=== PATIENT | female | born 1965 | race Caucasian/White ===

== ENCOUNTER 2017-10-29 14:44 | Day surgery (SDC) | payer OTHER ==
[~2017-10-29] VITALS: Ht 162.6 cm; Wt 113.5 kg
--- OUTSIDE RECORDS SUMMARY | ~2017-10-29 | XMS | Clinical Summary ---
Demographics + + + | Address | [address] [place] [address] | | | [place] [address] | + + + | Home Phone | | + + + | Preferred Language | Unknown | + + + | Marital Status | | + + + | Worship Affiliation | BAP | + + + | Race | White | + + + | Ethnic Group | Not or | + + + Author + + + | Author | [facility] | + + + | Organization | [facility] | + + + | Address | Unknown | + + + | Phone | Unavailable | + + + Support +------+ + + + + | Name | Relationship | Address | Phone | +------+ + + + + ECON | [address] | | [place] [address] | +------+ + + + + Care Team Providers + +------+ + | Care Medical Transcription Radiology Name | Role | Phone | + +------+ + | Marcella DrummondP | PP | | + +------+ + Source Comments CELE is fully live on both EpicCare Ambulatory and EpicCare InPatient.[facility] Allergies + + + + + + | Active Allergy | Reactions | Severity | Noted | Comments | | | | | Date | | + + + + + + | Erythromycin | Hives, Rash | | 12/29/19 | | | | | | 08 | | + + + + + + | Gluten | Diarrhea | | 08/27/20 | Celiac disease : | | | | | 12 | "Gas, bloating, | | | | | | abdominal pain." | + + + + + + | Adhesive Tape | Rash | | 07/18/20 | Blister Blisters | | | | | 11 | | + + + + + + | Tetracycline | Hives, Rash | | 12/29/19 | | | | | | 08 | | + + + + + + Current Medications + + + +---------+------+------+-------+ | Prescription | Sig. | Disp. | Refills | Star | End | Statu | | | | | | t | Date | s | | | | | | Date | | | + + + +---------+------+------+-------+ | ibuprofen 600 mg | Take 1 Tab by mouth | 60 Tab | 1 | 09/1 | | Activ | | Oral tablet | every six hours as | | | 4/20 | | e | | | needed. | | | 12 | | | + + + +---------+------+------+-------+ | acetaminophen | Take 325 mg by mouth | | | | | Activ | | (TYLENOL) 325 mg | every four hours as | | | | | e | | Oral tablet | needed. | | | | | | + + + +---------+------+------+-------+ | pseudoephedrine | Take 1 to 2 tablets | 30 | 0 | 05/2 | | Activ | | (SUDOGEST) 30 mg | by mouth every 4 to | tablet | | 6/20 | | e | | oral tablet | 6 (four to six) | | | 15 | | | | | hours as needed for | | | | | | | | congestion. | | | | | | + + + +---------+------+------+-------+ | nitroglycerin 0.4 | Place 1 tablet under | 25 | 5 | 09/ | | Activ | | mg sublingual | tongue every five | tablet | | /20 | | e | | tablet, | minutes as needed | | | 15 | | | | sublingualIndication | for chest pain. | | | | | | | s: Precordial pain | Place under tongue | | | | | | | | and allow to | | | | | | | | dissolve. | | | | | | | | Administer every 5 | | | | | | | | minutes, max of 3 | | | | | | | | doses in 15 minutes. | | | | | | + + + +---------+------+------+-------+ | sertraline 50 mg | Take 50 mg by mouth | | 1 | 02/0 | | Activ | | oral tablet | once daily. Pt | | | 12/16 | | e | | | taking 0.5 tablet | | | 16 | | | | | daily | | | | | | + + + +---------+------+------+-------+ | acyclovir 800 mg | Take 1 tablet by | 10 | 4 | 07/2 | | Activ | | oral tablet | mouth two times | tablet | | 10/18 | | e | | | daily. X 5 days | | | 16 | | | + + + +---------+------+------+-------+ | lidocaine 2 % | Apply to affected | 30 mL | 5 | 08/2 | | Activ | | mucous membrane gel | area three times | | | 2/20 | | e | | | daily as needed. | | | 16 | | | | | Apply gel liberally | | | | | | | | to the affected area | | | | | | | | prior to | | | | | | | | intercourse. | | | | | | + + + +---------+------+------+-------+ | | Take 1 tablet by | 15 | 0 | 03/2 | | Activ | | HYDROcodone-acetamin | mouth every four to | tablet | | 2/20 | | e | | ophen (NORCO) 5-325 | six hours as needed | | | 17 | | | | mg oral tablet | for pain. | | | | | | + + + +---------+------+------+-------+ | ergocalciferol | Take 1 capsule by | 6 | 3 | 03/2 | | Activ | | 50,000 unit oral | mouth every fourteen | capsule | | 8/20 | | e | | capsuleIndications: | days. Indications: | | | 17 | | | | Vitamin D Deficiency | Vitamin D Deficiency | | | | | | + + + +---------+------+------+-------+ | leucovorin 5 mg | Take 1 tablet by | 120 | 2 | 04/ | | Activ | | oral tablet | mouth once daily. | tablet | | 06/18 | | e | | | | | | 17 | | | + + + +---------+------+------+-------+ | methotrexate 2.5 | Take 8 tablets by | 96 | 1 | 02/28 | | Activ | | mg oral tablet | mouth every seven | tablet | | 04/17 | | e | | | days. | | | 17 | | | + + + +---------+------+------+-------+ Active Problems + + + | Problem | Noted Date | + + + | Obstructive sleep apnea | 08/07/2016 | + + + | Appendicitis | 05/27/2015 | + + + | Acute appendicitis, unspecified acute appendicitis type | 05/27/2015 | + + + | Plantar fasciitis | 07/13/2014 | + + + | Psoriatic arthritis (HCC) | 02/28/2014 | + + + | BMI 40.0-44.9, adult (HCC) | 06/05/2012 | + + + | Rectocele | 06/05/2012 | + + + | Fecal incontinence | 06/05/2012 | + + + | ROSALINA (stress urinary incontinence, female) | 06/05/2012 | + + + | Psoriasis | 06/05/2012 | + + + | Chronic orthostatic hypotension | 06/05/2012 | + + + | Celiac disease | 06/05/2012 | + + + | Chronic constipation | 06/05/2012 | + + + | Personal history of other malignant neoplasm of skin | 03/04/2012 | + + + | Other psoriasis | 02/21/2011 | + + + | Skin cancer | | + + + Immunizations + + + + | Name | Dates Previously Given | Next Due | + + + + | Influenza Injectable | 07/11/2015 | | | Quadrivalent (IIV4 | | | | P-Free) | | | + + + + Family History + + +------+ + | Medical History | Relation | Name | Comments | + + +------+ + | Arthritis | Father | | | + + +------+ + | Cancer | Father | | Skin | + + +------+ + | Cataract | Father | | | + + +------+ + | Diabetes | Father | | | + + +------+ + | Heart Disease | Father | | | + + +------+ + | Arthritis | Maternal | | | | | Grandfath | | | | | er | | | + + +------+ + | Cancer | Maternal | | Skin | | | Grandfath | | | | | er | | | + + +------+ + | Diabetes | Maternal | | | | | Grandfath | | | | | er | | | + + +------+ + | Heart Disease | Maternal | | | | | Grandfath | | | | | er | | | + + +------+ + | Hypertension | Maternal | | | | | Grandfath | | | | | er | | | + + +------+ + | Blood Disease | Maternal | | Lupus external | | | Grandmoth | | | | | er | | | + + +------+ + | Hypertension | Maternal | | | | | Grandmoth | | | | | er | | | + + +------+ + | Diabetes | Mother | | | + + +------+ + | Glaucoma | Mother | | | + + +------+ + | Heart Disease | Mother | | | + + +------+ + | Blood Disease | Paternal | | Internal Lupus | | | Aunt | | | + + +------+ + | Arthritis | Paternal | | | | | Grandfath | | | | | er | | | + + +------+ + | Diabetes | Paternal | | | | | Grandfath | | | | | er | | | + + +------+ + | Heart Disease | Paternal | | | | | Grandfath | | | | | er | | | + + +------+ + | Cancer | Paternal | | pancreas | | | Grandmoth | | | | | er | | | + + +------+ + | Hypertension | Paternal | | | | | Grandmoth | | | | | er | | | + + +------+ + + +------+--------+ + | Relation | Name | Status | Comments | + +------+--------+ + | Brother | | Alive | | + +------+--------+ + | Brother | | Alive | | + +------+--------+ + | Daughter | | Alive | | + +------+--------+ + | Father | | Alive | | + +------+--------+ + | Maternal Grandfather | | | | + +------+--------+ + | Maternal Grandmother | | | | + +------+--------+ + | Mother | | Alive | | + +------+--------+ + | Paternal Aunt | | | | + +------+--------+ + | Paternal Grandfather | | | | + +------+--------+ + | Paternal Grandmother | | | | + +------+--------+ + | Son | | Alive | | + +------+--------+ + | Son | | Alive | | + +------+--------+ + Social History + + + +--------+ + | Tobacco Use | Types | Packs/Day | Years | Date | | | | | Used | | + + + +--------+ + | Former Smoker | Cigarettes | 1 | 6 | Quit: 09/29/1986 | + + + +--------+ + + +---+---+---+ | Smokeless Tobacco: | | | | | Never Used | | | | + +---+---+---+ + + | Tobacco Cessation: Counseling Given: Yes | + + + + +---------+ + | Alcohol Use | Drinks/We | oz/Week | Comments | | | ek | | | + + +---------+ + | No | | | | + + +---------+ + + + + | Sex Assigned at | Date Recorded | | | | + + + | Not on file | | + + + Last Filed Vital Signs + + + + | Vital Sign | Reading | Time Taken | + + + + | Blood Pressure | 123/69 | 11/19/2016 2:23 PM PST | + + + + | Pulse | 89 | 11/19/2016 2:23 PM PST | + + + + | Temperature | 36.6 C (97.9 F) | 09/18/2015 1:39 PM PST | + + + + | Respiratory Rate | 16 | 05/28/2015 8:21 AM PDT | + + + + | Oxygen Saturation | 98% | 11/19/2016 2:23 PM PST | + + + + | Inhaled Oxygen | - | - | | Concentration | | | + + + + | Weight | 113.9 kg (251 lb) | 11/19/2016 2:23 PM PST | + + + + | Height | 162.6 cm (5' 4") | 10/23/2016 9:51 AM PST | + + + + | Body Mass Index | 43.08 | 11/19/2016 2:23 PM PST | + + + + Plan of Treatment + + + + + | Health Maintenance | Due Date | Last Done | Comments | + + + + + | INFLUENZA VACCINE | | 06/26/2016, 07/11/2015, | | | (FLU SHOT) | 7 | 08/03/2007 | | + + + + + | MAMMOGRAM | | 06/11/2016, 01/06/2015, | | | | 8 | 05/05/2007 | | + + + + + Results Not on filefrom Last 3 Months
--- OUTSIDE RECORDS SUMMARY | ~2017-10-29 | XMS | Clinical Summary ---
Demographics + + + | Address | [address] [place] [address] | | | [place] [address] | + + + | Home Phone | | + + + | Preferred Language | Unknown | + + + | Marital Status | | + + + | [employer] Affiliation | BAP | + + + [...] [address] | | [place] [address] | +------+ + + + + Care Team Providers + +------+ + | Care Windrower Operator Name | Role | Phone | + +------+ + | Marcella DrummondP | PP | | + +------+ + Source Comments CELE is fully live on both EpicCare Ambulatory and EpicCare InPatient.[facility] Allergies + + + + + [...]
[2017-10-29] MEDS ORDERED: METHOTREXATE2.5 MG PO (15:19)
[2017-10-29] MEDS ORDERED: VITAMIN D250000 UNIT PO (15:19)
[2017-10-29] MEDS ORDERED: MAPAP500 M1 PO (15:20)
[2017-10-29] MEDS ORDERED: ACYCLOVIR800 MG PO (15:20)
[2017-10-29] MEDS ORDERED: LEUCOVORIN CALCI5 MG PO (15:20)
--- NOTE | 2017-10-29 18:37 | NUR ---
10/29/171836 Nelsy Blancas 1825 - PT ARRIVED TO PACU. MAINTAINING OWN AIRWAY. RESPONDING APPORPRIATLY TO QUESTIONS.
--- NOTE | 2017-10-30 10:17 | CONS ---
[facility] [address] [place], [place] [address] Signed DATE OF CONSULTATION: 10/29/2017 REFERRING PHYSICIAN: The ER provider. CHIEF COMPLAINT: Esophageal foreign body. HISTORY OF PRESENT ILLNESS: Isabel is a 52-year-old female, who had made her own chicken stew. Around 1:45 this afternoon, she was just finishing her bowl of soup and felt like something went down her throat, caused her some pain. She went back to work and within a couple hours, she said it was not, then seemed to get any better, so she decided to come to the emergency room for evaluation. She is in no acute distress and she handles her secretions fine. The ER doctor told me a chest x-ray was done. He looked at and could not see any mediastinal air, but the official report had been pending. In the meantime, he asked me to come see her for consideration of upper endoscopy. Unfortunately, I am not able, my account for our electronic health records has been deleted for some reason and I spent more than 35 minutes on the phone with IT center and I am not able to access my account. Therefore, I have been delayed by at least 35 minutes. PAST MEDICAL HISTORY: 1. Psoriatic arthritis. 2. Celiac disease. 3. Genital herpes. PAST SURGICAL HISTORY: Includes: 1. Appendectomy. 2. A mole removed from her nose. 3. Exploratory laparotomy. SOCIAL HISTORY: She quit smoking. She does not drink. She is to [employer] at #[phone]. They have a son. Cher Giang is her nurse practitioner. They prefer the [facility]. FAMILY HISTORY: Dad apparently had coronary artery disease and a defibrillator along with skin cancer. Apparently, there is diabetes in the family. REVIEW OF SYSTEMS: I reviewed 10 systems with Isabel and nothing new to add. Electronically Signed By: PAWAN AGUIAR MD 10/30/17 1017 PATIENT NAME: ISABEL MONK CONSULTATION DATE OF : 63 PHYSICIAN: PAWAN AGUIAR MD REPORT #: [id number] REPORT IS CONFIDENTIAL AND NOT TO BE RELEASED WITHOUT AUTHORIZATION [facility] [address] [place], [place] [address] Signed ALLERGIES: Tetracycline, erythromycin, and gluten. MEDICATIONS: 1. Methotrexate. 2. Leucovorin. 3. Vitamin D. 4. Tylenol. 5. Acyclovir. PHYSICAL EXAMINATION: VITAL SIGNS: She is afebrile. Vital signs are stable. She is 5 feet 4 inches at 113 kg. GENERAL: Isabel is a 52-year-old female, who appears healthy and at her stated age. She is lying supine semi-recumbent in the ER bed, watching TV with her at the bedside. LUNGS: Clear to auscultation bilaterally. HEART: Regular rate and rhythm. ABDOMEN: Soft and nontender. She controls her secretions throughout and has no change in her voice. LABORATORY DATA: None. RADIOGRAPHIC STUDIES: Chest x-ray reported as no pneumomediastinum per the ER doctor. ASSESSMENT AND PLAN: Isabel is a 52-year-old female, who may have a piece of turkey bone in her throat. At this point, we are going to take her down to the endoscopy suite for upper endoscopy and we will examine the esophagus. We will do our best to look at the stomach, but there may have quite a bit of food in it. We will see at that time. Consequently, we are going to need an anesthesia provider for an endotracheal tube to help protect her airway. I have discussed this with the patient and her . They have expressed understanding and agreed to above plan. Pawan Aguiar MD ALB/MODL /[id number] Electronically Signed By: PAWAN AGUIAR MD 10/30/17 1017 PATIENT NAME: ISABEL MONK CONSULTATION DATE OF : 63 PHYSICIAN: PAWAN AGUIAR MD REPORT #: [id number] REPORT IS CONFIDENTIAL AND NOT TO BE RELEASED WITHOUT AUTHORIZATION [address] [address] Signed cc: Cher Giang PA-C Electronically Signed By: PAWAN AGUIAR MD 10/30/17 1017 PATIENT NAME: ISABEL MONK CONSULTATION DATE OF : 63 PHYSICIAN: PAWAN AGUIAR MD REPORT #: [id number] REPORT IS CONFIDENTIAL AND NOT TO BE RELEASED WITHOUT AUTHORIZATION
--- NOTE | 2017-10-30 10:17 | OR ---
[facility] [address] [place], [place] [address] Signed DATE OF OPERATION: 10/29/2017 SURGEON: Pawan Flanagan MD PREOPERATIVE DIAGNOSIS: Possible esophageal foreign body (turkey bone). POSTOPERATIVE DIAGNOSES: 1. No foreign body in the esophagus, stomach, or proximal duodenum. 2. Mild diffuse gastritis. 3. Small type 1 hiatal hernia. PROCEDURES: EGD with CLOtest and biopsies of the antrum. ESTIMATED BLOOD LOSS: None. INDICATIONS: Isabel is a 52-year-old female, who had made her own turkey soup. About 1:45 this afternoon, she was just finishing her bowl of soup. She felt like maybe a bone went down the back of her esophagus and down into her chest. 2 hours later she was still having pain, so she decided to come the emergency room. In the emergency room, she seemed to be fine. No acute distress and no airway issues. A chest x-ray was performed according to the ER doctor. There was no pneumomediastinum. I have been called to see her as a general surgeon. In the emergency room, I spent over 35 minutes talking with our IT department trying to access the computer. We finally had and I went ahead and talked to Isabel without the help of the computer. I explained to her that I thought she was probably fine. We would go ahead and check with her scope and make sure there is nothing caught in the esophagus or stomach. She and her have both been through colonoscopy, so they are familiar with this process. I explained to her that there is risk including, but not limited to gas bloating, crampy abdominal pain, bleeding, perforation, requiring surgery, and missed diagnosis. In addition, we gently send these patient's home afterwards. Given her current situation, we felt we needed an anesthesia provider to intubate her and protect her airway in case there were still any soup left in her stomach. She and her had expressed understanding wished to proceed. PROCEDURE NOTE: Isabel was taken into our endoscopy suite and placed in the supine semi-recumbent Electronically Signed By: PAWAN FLANAGAN MD 10/30/17 1017 PATIENT NAME: ISABEL MONK OPERATIVE REPORT DATE OF : 63 PHYSICIAN: PAWAN FLANAGAN MD REPORT #: [id number] REPORT IS CONFIDENTIAL AND NOT TO BE RELEASED WITHOUT AUTHORIZATION [facility] [address] [place], [place] [address] Signed position. She was initially intubated, but was not oxygenating well, so the ET tube was pulled. She was given albuterol and she markedly improved. She was then reintubated and did much better with her chest wall movement and her oxygenation. After that, the adult gastroscope was inserted and carefully passed under direct visualization down the esophagus and out into the stomach and into the duodenum itself. The duodenum and pyloric channel were unremarkable. She had just a little bit of vegetable matter in the antrum. Otherwise, her stomach was completely clear. There was no evidence of a turkey bone anywhere in the duodenum or stomach. I had retroflexed the scope and examined the fundus very well and suctioned out the fluid in the fundus and again no evidence of any turkey bone. There was no evidence of any blood or bleeding anywhere in the stomach or duodenum. She does have a small type 1 hiatal hernia. The scope was withdrawn back up through the area of the GE junction, which was compliant without stricture. The Z-line remains minimally disrupted. There was no Cox's mucosa, no distal esophagitis. Again, no evidence of any trauma with respect to erythema or blood anywhere in the esophagus, at the distal esophagus, middle or upper esophagus. The scope had been slowly withdrawn and then as we exited the posterior oropharynx we suctioned out the saliva and we looked around the ET tube in the retinoid and again no evidence of any bone in the posterior oropharynx. After this, the gastroscope was removed. Isabel was weaned from anesthesia, extubated in the OR, and taken into recovery room in stable condition. RECOMMENDATIONS: Isabel be discharged home tonight. We will see her back in the office in a week or so for followup to review her results and her biopsies. Pawan Flanagan MD ALB/MODL /[id number] cc: MARCIAL Sandoval MD Electronically Signed By: PAWAN FLANAGAN MD 10/30/17 1017 PATIENT NAME: ISABEL MONK OPERATIVE REPORT DATE OF : 63 PHYSICIAN: PAWAN FLANAGAN MD REPORT #: [id number] REPORT IS CONFIDENTIAL AND NOT TO BE RELEASED WITHOUT AUTHORIZATION
== END 2017-10-29 22:00 | disposition home or self-care (01) ==
LOC: ED 14:44 → DSVR 17:12 → DS 17:12
PROVIDERS: Colon & Rectal Surgery
PROC: 0DB78ZX Excision of Stomach, Pylorus, Via Natural or Artificial Opening Endoscopic, Diagnostic (ICD-10-PCS; principal; 2017-10-29 17:09)
DX: K29.50 Unspecified chronic gastritis without bleeding (principal); K44.9 Diaphragmatic hernia without obstruction or gangrene; L40.50 Arthropathic psoriasis, unspecified; Z90.49 Acquired absence of other specified parts of digestive tract; Z98.890 Other specified postprocedural states; Z87.891 Personal history of nicotine dependence; Z88.1 Allergy status to other antibiotic agents; Z88.8 Allergy status to other drugs, medicaments and biological substances
CPT/HCPCS: 00910; 71045; 86677; 88305; 99285; J0330; J1100; J2704

== ENCOUNTER 2020-07-24 16:13 | Emergency (ER) | payer OTHER ==
[~2020-07-24] VITALS: Ht 162.6 cm; Wt 105.2 kg
[~2020-07-24 16:13] MED LIST: ACYCLOVIR800 MG PO; LEUCOVORIN CALCI5 MG PO; MAPAP500 M1 PO; METHOTREXATE2.5 MG PO; VITAMIN D250000 UNIT PO
[2020-07-24] MEDS ORDERED: DECADRON6 MG PO (18:39)
[2020-07-24] MEDS ORDERED: LEVOFLOXACIN500 MG PO (19:04)
== END 2020-07-24 19:47 | disposition home or self-care (01) ==
LOC: ED 16:13
DX: U07.1 COVID-19 (principal); J12.89 Other viral pneumonia; Z87.891 Personal history of nicotine dependence; Z88.1 Allergy status to other antibiotic agents; Z88.8 Allergy status to other drugs, medicaments and biological substances; Z79.899 Other long term (current) drug therapy
CPT/HCPCS: 71045; 80053; 83735; 83880; 84484; 85025; 96361; 96374; 99285-25; J1100; J7030

== ENCOUNTER 2021-12-13 06:05 | Day surgery (SDC) | payer OTHER ==
[~2021-12-13] VITALS: Ht 162.6 cm; Wt 105.2 kg
[~2021-12-13 06:05] MED LIST changes: +B COMPLEX1 EACH PO; +DECADRON6 MG PO; +LEVOFLOXACIN500 MG PO; +SAW PALMETTO 41 EACH PO; +SUDAFED 12 HOU120 MG PO; +VITAMIN E400 UNI1 PO
--- NOTE | 2021-12-13 06:28 | NUR ---
COVID SWAB DONE TO BOTH NARES AND SENT TO IN HOUSE LAB.
--- NOTE | 2021-12-13 09:16 | NUR ---
12/13/21 0916 Ashia Perry 0912 PATIENT ARRIVES TO PACU AWAKE BUT DROWSY. SLEEPING WHEN NOT STIMULATED. RESP EVEN AND UNLABORED, NC AT 3 LITERS, TURNED OFF ON ARRIVAL TO PACU.
--- NOTE | 2021-12-14 06:08 | OR ---
[facility] [address] [place], [place] [address] Signed DATE OF OPERATION: 12/13/2021 SURGEON: Pawan Flanagan MD PREOPERATIVE DIAGNOSES: 1. Hyperplastic polyps in 2011. 2. Celiac sprue. 3. Mother with colonic polyps at age 80. 4. Repair of fecal incontinence in 2009 at [facility]. 5. Mild continued fecal incontinence to liquids. POSTOPERATIVE DIAGNOSES: 1. 5 mm polyp at 100 cm/distal transverse colon. 2. 4 mm polyp at the 85 cm/left colon. 3. Minimal internal hemorrhoids. PROCEDURE: Colonoscopy with hot biopsy. ESTIMATED BLOOD LOSS: None. INDICATIONS: Isabel is a 56-year-old female asked to see me for followup colonoscopy. She underwent colonoscopy in 2011 at [facility]. She had a very tiny hyperplastic polyp removed. In the meantime, she did have three children, all born vaginally. She remembers having an episiotomy. She talked about constipation as a child. She also has celiac sprue. She visited with the colorectal surgeon in 2009 at [facility]. She underwent some type of repair for her fecal incontinence. She cannot give me any details. She still leaks a little liquid stool once in a while. She reminded me that her 80-year-old mother had three colonic polyps removed. Apparently, they were all benign. They told her to come back in the years if she was still healthy. No family history of colon cancer. She talked about her blood pressure dropping when she lies supine. We did not experience that today. She also has postoperative nausea and vomiting, and so we gave her Zofran for the procedure. In the office I gave Isabel a pamphlet on colonoscopy. She recalls the test quite well. There is risk including, but not limited to gas bloating, crampy abdominal pain, bleeding, perforation requiring surgery, and missed diagnosis. We also reviewed the need for IV conscious sedation. She had expressed understanding and wished to proceed. Electronically Signed By: PAWAN FLANAGAN MD 12/14/21 0608 PATIENT NAME: ISABEL MONK OPERATIVE REPORT DATE OF : 63 REPORT #: [id number] PHYSICIAN: PAWAN FLANAGAN MD PCP: CHER CURTIS PA-C REPORT IS CONFIDENTIAL AND NOT TO BE RELEASED WITHOUT AUTHORIZATION [facility] [address] [place] [id number] Signed DESCRIPTION OF PROCEDURE: Isabel was taken into our endoscopy suite and placed in the left lateral decubitus position. She was given 6 mg of Versed and 175 mcg of fentanyl to cover the case. A digital rectal exam was carefully performed. I could not see any surgical scars anywhere around the anus or between the vagina and the anus. The perineal body feels intact. Posteriorly, the puborectalis muscle and the anal sphincter complex does not feel quite as heavy as usual. But again, I could not see any scars. There were no masses. The adult colonoscope was introduced and advanced all the way around into the cecum under direct visualization of the camera. She had a few areas of angulation. Also, she has somewhat long redundant colon. Therefore, it took extra sedation and a little bit of abdominal compression to advance the scope. In the end, we could easily see the appendiceal orifice and the ileocecal valve. She had a few areas of liquid particulate stool matter. Most of that was suctioned and irrigated out. In the future, she probably could consider a double bowel prep. The scope was then slowly withdrawn. In the distal transverse colon, we found a 5 mm polyp and a 4 mm polyp in the proximal left colon. Both were easily removed with hot biopsy forceps. No diverticulosis. In the rectum, the scope was retroflexed and she has minimal internal hemorrhoid columns. Again, no scarring that I could see inside the anal canal around the distal portion of the rectum. After this, the gas was suctioned out and the colonoscope removed. Isabel tolerated the procedure quite well. RECOMMENDATIONS: I will see Isabel back in my office in 7 to 14 days to review her results. She should consider a double bowel prep in the future. Pawan Flanagan MD ALB/MODL /[id number] cc: MD Cher Morris PA-C Copies: PAWAN FLANAGAN MD Electronically Signed By: PAWAN FLANAGAN MD 12/14/21 0608 PATIENT NAME: ISABEL MONK OPERATIVE REPORT DATE OF : 63 REPORT #: [id number] PHYSICIAN: PAWAN FLANAGAN MD PCP: CHER CURTIS PA-C REPORT IS CONFIDENTIAL AND NOT TO BE RELEASED WITHOUT AUTHORIZATION [address] [address] Signed CHER CURTIS PA-C ~ Electronically Signed By: PAWAN FLANAGAN MD 12/14/21 0608 PATIENT NAME: LACHOISABEL OPERATIVE REPORT DATE OF : 63 REPORT #: [id number] PHYSICIAN: PAWAN FLANAGAN MD PCP: CHER CURTIS PA-C REPORT IS CONFIDENTIAL AND NOT TO BE RELEASED WITHOUT AUTHORIZATION
--- NOTE | 2021-12-14 18:05 | PATH ---
[facility] [address] [place], [place] [address] Signed SPECIMEN(S): A COLON POLYP AT 110 CM SPECIMEN(S): B COLON POLYP AT 85 CM SPECIMEN SOURCE: A. COLON POLYP AT 110 CM B. COLON POLYP AT 85 CM CLINICAL HISTORY: History of polyps. Postop: Colon polyps; internal hemorrhoids FINAL PATHOLOGIC DIAGNOSIS: A. Colon, polyp at 110 cm, polypectomy: - Tubular adenoma. - Negative for high-grade dysplasia or malignancy. B. Colon, polyp at 85 cm, polypectomy: - Hyperplastic polyp. - Negative for dysplasia or malignancy. NAL:C2NR MICROSCOPIC EXAMINATION: Histologic sections of all submitted blocks are examined by light microscopy. These findings, together with the gross examination, support the pathologic diagnosis. GROSS DESCRIPTION: Two specimens are received in two containers labeled with "LR". A. The specimen, labeled "LR, 1," and designated on the requisition "colon polyp at 110 cm," is received in formalin and consists of one fragment of pink-amor tissue (0.3 cm in greatest dimension). The specimen is submitted entirely in cassette A1. B. The specimen, labeled "LR, 2," and designated on the requisition "colon polyp at 85 cm," is received in formalin and consists of one fragment of pink-amor tissue (0.3 cm in greatest dimension). The specimen is submitted entirely in cassette B1. AC (under the direct supervision of a pathologist) The Gross Description was prepared using a voice recognition system. The report was reviewed for accuracy; however, sound-alike word errors, addition and/or deletions may occur. If there is any question about this report, please contact Client Services. PERFORMING LABORATORY: PATIENT NAME: JUDITH MONK PATHOLOGY DATE OF : 63 REPORT #: [id number] PHYSICIAN: DANIEL MAURO PCP: ANAIS CURTIS PA-C REPORT IS CONFIDENTIAL AND NOT TO BE RELEASED WITHOUT AUTHORIZATION [facility] [address] [address] Signed The technical component was [place] [address] [address] Reporter: Diana Gomez MD; CLIA# [id number]). [facility], [address] [address] (CLIA# [id number]). Diagnostician: Tonia Bruno MD Pathologist Electronically Signed 12/14/2021 Copies: ~ PATIENT NAME: JUDITH MONK PATHOLOGY DATE OF : 63 REPORT #: [id number] PHYSICIAN: DANIEL MAURO PCP: ANAIS CURTIS PA-C REPORT IS CONFIDENTIAL AND NOT TO BE RELEASED WITHOUT AUTHORIZATION
== END 2021-12-13 10:05 | disposition home or self-care (01) ==
LOC: DS 06:05
PROVIDERS: ATTEND Colon & Rectal Surgery
PROC: 0DBL8ZX Excision of Transverse Colon, Via Natural or Artificial Opening Endoscopic, Diagnostic (ICD-10-PCS; 2021-12-13)
PROC: 0DBG8ZX Excision of Left Large Intestine, Via Natural or Artificial Opening Endoscopic, Diagnostic (ICD-10-PCS; principal; 2021-12-13 08:15)
DX: D12.3 Benign neoplasm of transverse colon (principal); K64.8 Other hemorrhoids; K90.0 Celiac disease; E66.01 Morbid (severe) obesity due to excess calories; G47.33 Obstructive sleep apnea (adult) (pediatric); Z68.39 Body mass index [BMI] 39.0-39.9, adult; Z83.71 Family history of colonic polyps; Z87.19 Personal history of other diseases of the digestive system; Z88.1 Allergy status to other antibiotic agents; Z88.8 Allergy status to other drugs, medicaments and biological substances; Z91.018 Allergy to other foods; Z20.822 Contact with and (suspected) exposure to COVID-19
CPT/HCPCS: 99153; C9803; G0500; J2250; J3010; U0003